=== PATIENT | female | born 1930 | race Asian ===

== ENCOUNTER 2018-03-11 10:58 | Emergency (ER) | payer MEDICARE, OTHER ==
[~2018-03-11] VITALS: Wt 63.0 kg
[2018-03-11] MEDS ORDERED: ASPIRIN 81 MG TAB PO STA (11:43)
[2018-03-11] MEDS ORDERED: GLIM2TAB PO (11:46)
[2018-03-11] MEDS ORDERED: DAPA1TAB3 PO (11:46)
[2018-03-11] MEDS ORDERED: LOSA100T15 PO (11:47)
[2018-03-11] MEDS ORDERED: SITA100T11 PO (11:47)
[2018-03-11] MEDS ORDERED: METO-336 PO (11:48)
[2018-03-11] MEDS ORDERED: CLON-379 PO (11:48)
[2018-03-11] MEDS ORDERED: VERA240C2 PO (11:48)
[2018-03-11] MEDS ORDERED: CHOL100062 PO (11:49)
[2018-03-11] MEDS ORDERED: CALC500T91 PO (11:49)
[2018-03-11] MEDS ORDERED: ATOR20TA38 PO (11:49)
[2018-03-11] MEDS ORDERED: MECL-77 PO (11:50)
[2018-03-11] MEDS ORDERED: ZOLP5TAB7 PO (11:50)
[2018-03-11] MEDS ORDERED: SERT25TA83 PO (11:51)
[2018-03-11] MEDS ORDERED: MELO7.5T38 PO (11:51)
--- NOTE | 2018-03-11 13:00 | ERD ---
ER Documentation Chief Complaint Chief Complaint RIGHT ARM NUMBNESS X 2 MOS, SEND BY PMD FOR FURTHER EVAL HPI This is a 88-year-old female who is complaining of right arm numbness for 2 months. She states that she gets numb from the shoulder down to the proximal forearm and will last a few minutes and go away. She says she exercises regularly and never has any numbness during exercise. She says she will shake her arm or raise her arm up and the symptoms will go away. She never has numbness to the face or leg at the same time no speech changes no visual changes no swallowing difficulty. She says that the numbness occurs every day on most days for the past 2 months. Does not have any chest pain or difficulty breathing no diaphoresis no pain in the jaw back elbows or abdomen. Her primary care physician sent her over here for a CVA workup. She has not had any symptoms of numbness today. Denies neck pain ROS All systems reviewed and are negative except as per history of present illness. Medications Home Meds Reported Medications Meloxicam* (Meloxicam*) 7.5 Mg Tablet, 7.5 MG PO DAILY, #30 TAB 03/11/18 Sertraline Hcl* (Sertraline Hcl*) 25 Mg Tablet, 25 MG PO DAILY, #30 TAB 03/11/18 Meclizine Hcl* (Meclizine Hcl*) 25 Mg Tablet, 25 MG PO DAILY PRN for DIZZINESS, TAB 03/11/18 Zolpidem Tartrate* (Zolpidem Tartrate*) 5 Mg Tablet, 5 MG PO QHS PRN for INSOMNIA, #30 TAB 03/11/18 Cholecalciferol* (Vitamin D3*) 1,000 Unit Tablet, 2000 UNIT PO DAILY, TAB 03/11/18 Calcium Carbonate ([id number]) 500 Mg Tablet, 500 MG PO BID, TAB 03/11/18 Atorvastatin Calcium* (Atorvastatin Calcium*) 20 Mg Tablet, 20 MG PO QHS, #30 TAB 03/11/18 Clonidine Hcl* (Clonidine Hcl*) 0.1 Mg Tab, 0.1 MG PO BID, TAB 03/11/18 Verapamil Hcl* (Verapamil ER*) 240 Mg Cap24h.pel, 240 MG PO DAILY, CAP 03/11/18 Metoprolol Succinate* (Toprol XL*) 100 Mg Tab.sr.24h, 100 MG PO DAILY, #30 TAB 03/11/18 Losartan Potassium* (Losartan Potassium*) 100 Mg Tablet, 100 MG PO DAILY, TAB 03/11/18 Sitagliptin* (Januvia*) 100 Mg Tablet, 100 MG PO DAILY, #30 TAB 03/11/18 Glimepiride* (Glimepiride*) 2 Mg Tablet, 2 MG PO WITH BREAKFAST DINNE, TAB 03/11/18 Dapagliflozin/Metformin HCl (Xigduo Xr 5 mg-1,000 mg Tablet) 1 Each Tab.bp.24h, 2 EACH PO DAILY, TAB 03/11/18 Allergies Allergies: Coded Allergies: No Known Allergy (Unverified , 03/11/18) PMhx/Soc History of Surgery: Yes (B CATARACT SURGERY) Anesthesia Reaction: No Hx Neurological Disorder: No Hx Respiratory Disorders: No Hx Cardiac Disorders: No Hx Psychiatric Problems: No Hx Miscellaneous Medical Probl: Yes (HTN, ARTHRITIS, CHOLESTEROL, OSTEOPOROSIS) Hx Alcohol Use: No Hx Substance Use: No Hx Tobacco Use: No Smoking Status: Never smoker FmHx Family History: No coronary disease Physical Exam Vitals Vital Signs Date Temp Pulse Resp B/P (MAP) Pulse Ox O2 O2 Flow FiO2 Time Delivery Rate 03/11/18 97.3 70 18 182/96 99 11:01 (124) Physical Exam Const: Well-developed, well-nourished Head: Atraumatic, normocephalic Eyes: Normal Conjunctiva, PERRLA, EOMI, normal sclera, no nystagmus ENT: Normal External Ears, Nose and Mouth, moist mucus membranes. Neck: Full range of motion. No meningismus, no lymphadenopathy. Resp: Clear to auscultation bilaterally, no wheezing, rhonchi, rales Cardio: Regular rate and rhythm, no murmurs, S1 S2 present Abd: Soft, non tender x 4, non distended. Normal bowel sounds, no guarding or rebound, no pulsitile abdominal masses or bruits Skin: No petechiae or rashes, no ecchymosis , no maculopapular rash Back: No midline or flank tenderness Ext: No cyanosis, or edema, FROM x 4, normal inspection, neurovascularly intact x 4 Neur: Awake and alert, STR 5/5 x 4, sensation intact x 4, no focal findings, cerebellum intact Psych: Normal Mood and Affect Result Diagram: 03/11/18 1200 03/11/18 1200 Results 24 hrs Laboratory Tests Test 03/11/18 12:00 White Blood Count 6.2 10^3/ul Red Blood Count 4.24 10^6/ul Hemoglobin 12.9 g/dl Hematocrit 39.4 % Mean Corpuscular Volume 92.9 fl Mean Corpuscular Hemoglobin 30.4 pg Mean Corpuscular Hemoglobin Concent 32.7 g/dl Red Cell Distribution Width 12.2 % Platelet Count 189 10^3/UL Mean Platelet Volume 10.0 fl Immature Granulocytes % 0.300 % Neutrophils % 61.6 % Lymphocytes % 27.9 % Monocytes % 7.8 % Eosinophils % 1.9 % Basophils % 0.5 % Nucleated Red Blood Cells % 0.0 /100WBC Immature Granulocytes # 0.020 10^3/ul Neutrophils # 3.8 10^3/ul Lymphocytes # 1.7 10^3/ul Monocytes # 0.5 10^3/ul Eosinophils # 0.1 10^3/ul Basophils # 0.0 10^3/ul Nucleated Red Blood Cells # 0.0 10^3/ul Sodium Level 138 mmol/L Potassium Level 4.4 mmol/L Chloride Level 96 mmol/L Carbon Dioxide Level 28 mmol/L Anion Gap 14 Blood Urea Nitrogen 22 mg/dl Creatinine 1.02 mg/dl Est Glomerular Filtrat Rate mL/min mL/min Glucose Level 140 mg/dl Calcium Level 10.1 mg/dl Total Bilirubin 0.2 mg/dl Direct Bilirubin 0.00 mg/dl Indirect Bilirubin 0.2 mg/dl Aspartate Amino Transf (AST/SGOT) 16 IU/L Alanine Aminotransferase (ALT/SGPT) 17 IU/L Alkaline Phosphatase 49 IU/L Total Protein 7.4 g/dl Albumin 4.2 g/dl Globulin 3.20 g/dl Albumin/Globulin Ratio 1.31 Current Medications Medications Dose Sig/Omari Start Time Status Last (Trade) Ordered Route PRN Stop Time Admin Dose Reason Admin Aspirin 162 mg ONCE STAT 03/11/18 DC 03/11/18 (Aspirin) PO 11:43 12:48 03/11/18 11:45 Procedures/MDM Ordering MD: ERICA VAZQUEZ DO Location: E/R Room/Bed: PROCEDURE: CT Brain without contrast. CLINICAL INDICATION: Upper extremity numbness TECHNIQUE: A CT of the brain was performed on a multidetector CT scanner utilizing axial imaging from the skull base through the vertex without IV contrast. Multiplanar reformatted images were made. Images were reviewed on a PACS workstation. The CTDIvol is for mGy and the DLP is 80 634 mGycm. DICOM images are available. One or more of the following dose reduction techniques were utilized: 1.) Automated exposure control 2.) Adjustment of the mA +/- kV according to patient's size 3.) Use of iterative reconstruction technique. COMPARISON: None FINDINGS: There is moderate diffuse cerebral volume loss with sulcal and ventricular dilatation. No discrete extra-axial fluid collection or masses seen. Ventricles are in the midline and of normal configuration. There is periventricular white matter disease in both cerebral hemispheres. No associated mass effect is present. There is preservation of normal palacio-white differentiation. No intracranial hemorrhage is seen. There are vascular calcifications. There is normal aeration of the visualized paranasal sinuses. IMPRESSION: Atrophy. White matter disease compatible with chronic small vessel ischemia. No intracranial hemorrhage, mass or evidence of acute transcortical infarct. Vascular calcifications. .Armaan Talamantes MD, MD Date Time Electronically viewed and signed by .Armaan Talamantes MD, MD on 03/11/2018 12:43 .A/ CC: ERICA VAZQUEZ DO [id number] Ordering MD: ERICA VAZQUEZ DO Location: E/R Room/Bed: PROCEDURE: CT Cervical Spine without contrast. CLINICAL INDICATION: Right upper extremity numbness TECHNIQUE: A CT of the cervical spine was performed on a multidetector CT scanner utilizing thin section axial images from the skull base through the thoracic inlet. Sagittal and coronal reformatted images were made. The CTDIvol is 22 mGy and the DLP is 461 mGycm. DICOM images are available. One or more of the following dose reduction techniques were utilized: 1.) Automated exposure control 2.) Adjustment of the mA +/- kV according to patient's size 3.) Use of iterative reconstruction technique. COMPARISON: No prior studies are available for comparison. FINDINGS: There is straightened lordosis of the cervical spine compatible with muscular spasm or sprain. Noted is 3 mm anterolisthesis of C7 on T1. There is otherwise anatomic alignment. No prevertebral soft tissue swelling is seen. No vertebral body subluxation is seen. No fracture is evident. C2-3: The disc is normal in height. No significant disk bulge or protrusion is evident. There is no central canal stenosis or foraminal narrowing. C3-4: The disc is normal in height. No significant disk bulge or protrusion is evident. There is no central canal stenosis. There is left-sided facet arthropathy with left foraminal stenosis.. C4-5: The disc is normal in height. Noted is a mild concentric disc bulge measuring 2 mm in AP diameter. There is no central stenosis. There is left facet arthropathy with bilateral left greater than right foraminal stenosis. C5-6: There is degenerative narrowing of the disc. Noted is an asymmetric left greater than right broad-based disc ridge complex measuring 3.5 mm in AP diameter. There is moderate central stenosis with bilateral foraminal stenosis. C6-7: The disc is normal in height. No significant disk bulge or protrusion is evident. There is no central canal stenosis or foraminal narrowing. C7-T1: The disc is normal in height. No significant disk bulge or protrusion is evident. There is no central canal stenosis or foraminal narrowing. IMPRESSION: Straightened cervical lordosis compatible with muscular spasm or sprain. Left foraminal stenosis C3-C4. Mild concentric disc bulge C4-C5. Left greater than right foraminal stenosis. Degenerative narrowing C5-C6. Asymmetric broad-based left greater than right disc ridge complex with moderate central stenosis and left greater than right foraminal stenosis. .Armaan Talamantes MD, MD Date Time Electronically viewed and signed by .Armaan Talamantes MD, on 03/11/2018 12:48 .A/ CC: ERICA VAZQUEZ DO [id number] Patient shows no evidence of an acute, subacute infarct. She is having some o ff-and-on right arm numbness which could be neurological in nature, her C-spine CT scan does not show a significant right sided bulge but MRI should be done as well as MRI of brain. Her right arm numbness occurs sporadically and does not occur with exertion ever. However, I do feel she should get a cardiac eval with her primary care physician. I did relay this information to them. Patient feels much better at this time, and vital signs are normal, symptoms have improved. I did give strict instructions to return to the ED if symptoms continue or worsen, patient will otherwise follow-up with primary care physician. Patient understood instructions and agreed to plan. Disclaimer: Inadvertent spelling and grammatical errors are likely due to EHR/dictation software use and do not reflect on the overall quality of patient care. Also, please note that the electronic time recorded on this note does not necessarily reflect the actual time of the patient encounter. EKG: Rate/Rhythm: Normal Sinus Rhythm,NL intervals QRS, ST, QT: NORMAL AR, QRS, QT] Impression: NORMAL EKG Departure Diagnosis: Primary Impression: Numbness Condition: Stable ERICA VAZQUEZ DO Mar 11, 2018 13:00
[2018-03-11] MEDS ORDERED: ASPI-817 PO (13:04)
[2018-03-11 13:16] VITALS: PULSE 67; RESP 16
[2018-03-11] MEDS ORDERED: NICARDipine HCL 30 MG CAPSULE PO ONE ×2 (13:30→14:30)
[2018-03-11 13:56] VITALS: BP 200/89
== END 2018-03-11 14:31 | disposition home or self-care (01) ==
LOC: E/R 10:58
DX: R20.0 Anesthesia of skin (principal); I10 Essential (primary) hypertension; Z79.84 Long term (current) use of oral hypoglycemic drugs
CPT/HCPCS: 36415; 70450; 72125; 80053; 85025; 93005